=== PATIENT | male | born 1945 | race Caucasian/White ===

== ENCOUNTER 2017-07-19 09:45 | Day surgery (SDC) | payer BC, MEDICARE ==
[2017-07-17 09:42] VITALS: BMI 27.1
[~2017-07-19 09:45] MED LIST: LACTATED RINGERS 1,000 ML IV SCH
[2017-07-19 10:22] VITALS: TEMP 97.4
[2017-07-19] MEDS ORDERED: LIDOCAINE 1% 20 ML VIAL (10MG/ML) FOR IV START INTRADERMA ONE (10:30)
[2017-07-19] MEDS ORDERED: MIDAZOLAM 2 MG/2 ML VIAL IVP ONE (10:35)
[2017-07-19] MEDS ORDERED: LIDOCAINE 1% INJ 10MG/ML (20 ML MDV) ONE (10:56)
[2017-07-19] MEDS ORDERED: PROPOFOL 10 MG/ML 20 ML VIAL IV ONE (10:56)
--- NOTE | 2017-07-19 11:10 | P.PCN ---
Date of Procedure: 07/19/17 Procedure(s) Performed: BRIEF HISTORY: Patient is a 72-year-old, pleasant, white male, scheduled for an upper endoscopy as a part of [facility] history of GERD. He has been on Prilosec 20 mg twice daily. About a month ago he had severe heartburn and chest pain. He was started on Reglan 5 mg twice daily and his symptoms have improved. He scheduled for an upper endoscopy to rule out complicated reflux disease. PROCEDURE PERFORMED: Esophagogastroduodenoscopy with biopsy. PREOPERATIVE DIAGNOSIS: GERD IV sedation per anesthesia. PROCEDURE: After informed consent was obtained, the patient was brought into the endoscopy unit. IV sedation was administered by Anesthesia under continuous monitoring. Initially the Olympus GIF-140 video endoscope was inserted into the mouth. Esophagus intubated without any difficulty. It was gradually advanced into the stomach and duodenum and carefully examined. The bulb and the second part of the duodenum appeared normal. The scope at this time was withdrawn to the stomach, adequately insufflated with air, and upon careful examination, mucosa of the antrum had mild gastritis and biopsies were done from this area. The, body, cardia and the fundus appeared normal. The scope was then withdrawn into the esophagus. The GE junction was located at 39 cm from the incisors. The esophagus appeared normal. There were no erosions or ulcerations seen and the patient tolerated the procedure well. IMPRESSION: 1. Mild antral gastritis. 2. Normal-appearing esophagus with no evidence of esophagitis or Sanders's esophagus. RECOMMENDATIONS: The findings of this examination were discussed with the patient as well as his family. He was advised to follow with the biopsy results. He will continue with Prilosec 20 mg twice daily half hour before breakfast and dinnertime and follow antireflux measures.
[2017-07-19 11:27] VITALS: RESP 18
[2017-07-19 11:41] VITALS: BP 138/88; PULSE 58
== END 2017-07-19 11:55 | disposition home or self-care (01) ==
LOC: ORWHC2ENDO 09:45
PROVIDERS: ATTEND Internal Medicine Gastroenterology
DX: K29.50 Unspecified chronic gastritis without bleeding (principal); K22.9 Disease of esophagus, unspecified; K21.9 Gastro-esophageal reflux disease without esophagitis; E78.5 Hyperlipidemia, unspecified; Z79.82 Long term (current) use of aspirin; Z79.899 Other long term (current) drug therapy
CPT/HCPCS: 88305; 43239; J2250; J2001; J2704

== ENCOUNTER → 2018-06-27 | Outpatient (CLI) | payer MEDICARE ==
--- NOTE | 2018-06-27 08:34 | US ---
EXAMINATION TYPE: US abdomen complete DATE OF EXAM: 06/27/2018 COMPARISON: NONE CLINICAL HISTORY: R10.11 RUQ PAIN. RUQ pain for 3 weeks EXAM MEASUREMENTS: Liver Length: 15.0 cm Gallbladder Wall: 0.3 cm CBD: 0.4 cm Spleen: 12.2 cm Right Kidney: 11.2 x 4.5 x 4.5 cm Left Kidney: 10.9 x 4.8 x 4.9 cm Technical limitations due to large amount of overlying bowel content Pancreas: Obscured by bowel gas Liver: appears wnl Gallbladder: no evidence of stones Evidence for sonographic Gamboa's sign: no CBD: appears wnl as visualized Spleen: appears wnl Right Kidney: possible dense echogenic area mid = 0.8cm Left Kidney: no evidence of hydronephrosis Upper IVC: wnl Abd Aorta: visualized portions appear wnl The liver is homogenous. The intrahepatic portion of the IVC and proximal abdominal aorta are within normal limits. There is no evidence of cholelithiasis. Common bile duct is unremarkable. The visu alized portions of the pancreas are homogenous. The spleen is unremarkable. Kidneys are symmetric a nd free of hydronephrosis. No renal lesions are seen. IMPRESSION: 1. Suspect nonobstructing calculus right kidney.
== END | disposition home or self-care (01) ==
LOC: RADUSWWP 07:38
PROVIDERS: ATTEND Family Medicine
DX: R10.11 Right upper quadrant pain (principal)
CPT/HCPCS: 76700

== ENCOUNTER 2018-09-12 08:36 | Day surgery (SDC) | payer MEDICARE ==
[2018-09-11 08:27] VITALS: BMI 27.1
[~2018-09-12 08:36] MED LIST changes: +LIDOCAINE 1% 20 ML VIAL (10MG/ML) FOR IV START INTRADERMA PRN
[2018-09-12 08:49] VITALS: TEMP 97.4
[2018-09-12] MEDS ORDERED: LIDOCAINE 1% INJ 10MG/ML (20 ML MDV) ONE (09:21)
[2018-09-12] MEDS ORDERED: PROPOFOL 10 MG/ML 20 ML VIAL IV ONE (09:21)
--- NOTE | 2018-09-12 09:34 | P.PCN ---
Date of Procedure: 09/12/18 Procedure(s) Performed: BRIEF HISTORY: Patient is a 73-year-old pleasant white male, scheduled for an elective colonoscopy as a part of variation of prior history of colon polyps. PROCEDURE PERFORMED: Colonoscopy. PREOPERATIVE DIAGNOSIS: History of colon polyps. IV sedation per Anesthesia. PROCEDURE: After informed consent was obtained, the patient, was brought into the endoscopy unit. IV sedation was administered by Anesthesia under continuous monitoring. Digital rectal examination was normal. Initially the Olympus CF-160 flexible video colonoscope was then inserted in the rectum, gradually advanced into the cecum without any difficulty. Careful examination was performed as the scope was gradually being withdrawn. Ileocecal valve and the appendiceal orifice were visualized and appeared normal. Prep was excellent. Mucosa of the cecum, ascending colon, transverse colon, descending colon, sigmoid colon, and rectum appeared normal. Scattered left sided diverticulosis seen. Retroflexion was performed in the rectum and small internal hemorrhoids were seen. The patient tolerated the procedure well. IMPRESSION: Normal-appearing colon from rectum to cecum with no evidence of colitis or colorectal neoplasia Scattered sigmoid diverticulosis Small internal hemorrhoids . RECOMMENDATIONS: Findings of this examination were discussed with the patient as well as a family. She was advised to have a repeat screening colonoscopy in 5 years because of the prior history of colon polyps.
[2018-09-12 09:52] VITALS: BP 153/84; PULSE 66; RESP 18
== END 2018-09-12 10:23 | disposition home or self-care (01) ==
LOC: ORWHC2ENDO 08:36
PROVIDERS: ATTEND Internal Medicine Gastroenterology
DX: Z86.010 Personal history of colon polyps (principal); K57.30 Diverticulosis of large intestine without perforation or abscess without bleeding; K64.8 Other hemorrhoids; K21.9 Gastro-esophageal reflux disease without esophagitis; Z79.899 Other long term (current) drug therapy
CPT/HCPCS: 45378; J2001; J2704

== ENCOUNTER 2020-01-22 09:53 | Day surgery (SDC) | payer MEDICARE ==
[2020-01-22] MEDS ORDERED: ONDANSETRON 4 MG/2 ML VIAL ONE (10:53)
[2020-01-22] MEDS ORDERED: LIDOCAINE 1% (10MG/ML) FOR IV START INTRADERMA ONE (10:54)
[2020-01-22] MEDS ORDERED: LACTATED RINGERS 1,000 ML IV ONE (10:55)
[2020-01-22] MEDS ORDERED: ONDANSETRON 4 MG/2 ML VIAL IVP ONE (10:55)
[2020-01-22 10:57] VITALS: TEMP 97.6
[2020-01-22] MEDS ORDERED: PROPOFOL 10 MG/ML 20 ML VIAL IV ONE (11:28)
[2020-01-22] MEDS ORDERED: LIDOCAINE 1% INJ 10MG/ML (20 ML MDV) ONE (11:28)
--- NOTE | 2020-01-22 11:40 | P.PCN ---
Date of Procedure: 01/22/20 Procedure(s) Performed: BRIEF HISTORY: Patient is a 74-year-old, pleasant, white female scheduled for an upper endoscopy for evaluation of severe heartburn for the last 2 weeks' duration. He is presently on Prilosec and Carafate and Reglan with some help. He scheduled for an upper endoscopy to rule out compensated reflux disease. PROCEDURE PERFORMED: Esophagogastroduodenoscopy with biopsy. PREOPERATIVE DIAGNOSIS: Severe GERD of 2 weeks. IV sedation per anesthesia. PROCEDURE: After informed consent was obtained, the patient was brought into the endoscopy unit. IV sedation was administered by Anesthesia under continuous monitoring. Initially the Olympus GIF-140 video endoscope was inserted into the mouth. Esophagus intubated without any difficulty. It was gradually advanced into the stomach and duodenum and carefully examined. The bulb and the second part of the duodenum appeared normal. The scope at this time was withdrawn to the stomach, adequately insufflated with air, and upon careful examination, mucosa of the antrum had mild gastritis and biopsies were done from this area. The body, cardia and the fundus appeared normal. The scope was then withdrawn into the esophagus. The GE junction was located at 39 cm from the incisors. The esophagus appeared normal. There were no erosions or ulcerations seen, biopsies were done in the distal esophagus and the patient tolerated the procedure well. IMPRESSION: 1. Mild antral gastritis. 2. Normal appearing esophagus with no evidence of esophagitis. RECOMMENDATIONS: The findings of this examination were discussed with the patient well as his family. He was advised to follow with the biopsy results. In the meantime he will continue with omeprazole 40 mg before dinnertime, famotidine 20 mg at bedtime and Carafate as needed. He will be seen in office in 2 weeks.
[2020-01-22 11:49] VITALS: RESP 20
[2020-01-22 12:31] VITALS: BP 128/78; PULSE 58
== END 2020-01-22 12:29 | disposition home or self-care (01) ==
LOC: ORWHC2ENDO 09:53
PROVIDERS: ATTEND Internal Medicine Gastroenterology
DX: K29.50 Unspecified chronic gastritis without bleeding (principal); K21.00 Gastro-esophageal reflux disease with esophagitis, without bleeding; E78.5 Hyperlipidemia, unspecified; K21.9 Gastro-esophageal reflux disease without esophagitis; Z79.899 Other long term (current) drug therapy
CPT/HCPCS: 88305; 43239; J2405; J2001; J2704

== ENCOUNTER → 2020-03-25 | Outpatient (CLI) | payer MEDICARE ==
--- NOTE | 2020-03-26 09:16 | XR ---
EXAMINATION TYPE: XR KUB DATE OF EXAM: 03/25/2020 COMPARISON: None INDICATION: Hematuria TECHNIQUE: Single view abdomen supine view FINDINGS: There is a normal bowel gas pattern. Air is within the ascending colon and transverse colon. Psoas margins are normal. No organomegaly is present. There is a 0.4 cm transverse inferior pole left renal stone. There may be a 0.3 cm calcification over the mid lateral right kidney. This could be within fecal debris. Ar distal right ureteral stone is n ot excluded which would measure 0.3 cm. Correlate with patient's symptoms. IMPRESSION: 1. Bilateral renal stones with a possible distal right ureteral stone.
== END | disposition home or self-care (01) ==
LOC: RAD 17:10
PROVIDERS: ATTEND Urology
DX: N20.0 Calculus of kidney (principal)
CPT/HCPCS: 74018

== ENCOUNTER → 2020-12-01 | Outpatient (CLI) | payer MEDICARE ==
--- NOTE | 2020-12-01 12:50 | US ---
EXAMINATION TYPE: US venous doppler duplex LE RT DATE OF EXAM: 12/01/2020 12:40 PM COMPARISON: NONE CLINICAL HISTORY: I80.299 PHLEBITIS. Right medial thigh palpable painful area SIDE PERFORMED: Right TECHNIQUE: The lower extremity deep venous system is examined utilizing real time linear array sonog julien with graded compression, doppler sonography and color-flow sonography. VESSELS IMAGED: Common Femoral Vein Deep Femoral Vein Greater Saphenous Vein * Femoral Vein Popliteal Vein Small Saphenous Vein * Proximal Calf Veins (* superficial vessels) Right Leg: Appears negative for DVT and superficial thrombophlebitis IMPRESSION: 1. Right lower extremity ultrasound negative for deep venous thrombosis.
== END | disposition home or self-care (01) ==
LOC: RADUSWWP 12:02
PROVIDERS: ATTEND Family Medicine
DX: M79.651 Pain in right thigh (principal)

== ENCOUNTER → 2023-05-17 | Outpatient (CLI) | payer MEDICARE ==
--- NOTE | 2023-05-17 14:11 | US ---
EXAMINATION TYPE: DATE OF EXAM: 05/17/2023 COMPARISON: 2018 CLINICAL INDICATION: Male, 77 years old with history of N20.0 CALCULUS OF KIDNEY; Hx kidney stones; b ilateral flank pain EXAM MEASUREMENTS: Right Kidney: 10.7 x 5.0 x 5.1 cm Left Kidney: 10.6 x 5.4 x 4.1 cm Post Void Residual Volume: 15.4 mL Right Kidney: Echogenic focus with twinkle artifact noted measuring 0.7 cm; mild hydronephrosis; cyst ic area measuring 1.2 x 0.9 x 1.1 mild prominence of the renal collecting system. Left Kidney: No hydronephrosis or masses seen Bladder: Anechoic Bilateral Jets seen: Yes Normal Post Void Residual: Yes IMPRESSION: 1. Subcentimeter right renal calculus identified. 2. Mild prominence of the right renal collecting system
== END | disposition home or self-care (01) ==
LOC: RADUSWWP 13:31
PROVIDERS: ATTEND Internal Medicine
DX: N20.0 Calculus of kidney (principal)
CPT/HCPCS: 76770

== ENCOUNTER → 2023-06-14 | Outpatient (CLI) | payer MEDICARE ==
--- NOTE | 2023-06-14 12:15 | XR ---
EXAMINATION TYPE: XR KUB DATE OF EXAM: 06/14/2023 Comparison: 02/22/2021 Clinical History: 78-year-old male left renal stone and left-sided pain N20.0 KUB Findings: Nonobstructive bowel gas pattern. [id number] stool in the right-sided the abdomen. There is a 6 mm stone at the mid right ureter level. Possible 4 mm nonobstructive right renal stone. Suspected ti ny right-sided pelvic phlebolith. Impression: 6 mm stone in the expected mid right ureter. Possible 4 mm nonobstructive right renal calculus.
== END | disposition home or self-care (01) ==
LOC: RADXRMAIN 11:44
PROVIDERS: ATTEND Urology
DX: N20.2 Calculus of kidney with calculus of ureter (principal)
CPT/HCPCS: 74018

== ENCOUNTER → 2023-06-28 | Outpatient (CLI) | payer MEDICARE ==
--- NOTE | 2023-06-28 10:06 | CT ---
EXAMINATION TYPE: CT abdomen pelvis wo con CT DLP: 906 mGycm, Automated exposure control for dose reduction was used. DATE OF EXAM: 06/28/2023 8:39 AM COMPARISON: None CLINICAL INDICATION:Male, 78 years old with history of N20.1 CALCULUS OF URETER; TECHNIQUE: Axial CT abdomen pelvis wo con;Sagittal and coronal reformats were created on a separate workstation. Contrast used: mL of , (none if empty) Oral contrast used: (none if empty) FINDINGS: LOWER CHEST: Unremarkable ABDOMEN LIVER: Unremarkable GALLBLADDER AND BILE DUCTS: Unremarkable. PANCREAS: Fatty atrophy changes predominantly in the pancreatic head. SPLEEN: Unremarkable. ADRENAL GLANDS: Unremarkable. KIDNEYS AND URETERS: No evidence for obstructive uropathy. Nonobstructing right 4 mm contrast. Left 1 mm renal calculus. 5 mm thickness in the proximal right ureter. Series 3 image 56. PELVIS BLADDER: Unremarkable REPRODUCTIVE: Unremarkable. ABDOMEN & PELVIS STOMACH AND BOWEL: No evidence of bowel obstruction. Scattered colonic diverticula. The appendix is n ormal. PERITONEUM/RETROPERITONEUM: No evidence of pneumoperitoneum or free fluid. VASCULATURE: No evidence of aortic aneurysm. MUSCULOSKELETAL: No acute osseous abnormalities LYMPH NODES: No gross evidence for lymphadenopathy. SOFT TISSUE/ABDOMINAL WALL: Fat-containing umbilical hernia. IMPRESSION: 1. Right proximal ureter 5 mm calculus. No hydronephrosis. 2. Nonobstructing bilateral renal calculi. 3. Colonic diverticulosis. 4. Fat-containing umbilical hernia.
== END | disposition home or self-care (01) ==
LOC: RADCTMAIN 08:14
PROVIDERS: ATTEND Urology
DX: K57.30 Diverticulosis of large intestine without perforation or abscess without bleeding (principal); K42.9 Umbilical hernia without obstruction or gangrene; N20.2 Calculus of kidney with calculus of ureter
CPT/HCPCS: 74176

== ENCOUNTER → 2023-08-09 | Outpatient (CLI) | payer MEDICARE ==
[2023-08-09 10:45] LABS: Appearance,Urine Clear (Clear); Bilirubin,Urine Negative (Negative); Blood,Urine Negative (Negative); Color,Urine Yellow (Yellow); Ketones,Urine Negative (Negative); Nitrite,Urine Negative (Negative); Specific Gravity,Urine 1.011 (1.001-1.030)
[2023-08-09 18:10] LABS: Basophils # (A) 0.04 X 10*3/uL (0.00-0.10); Basophils % (A) 0.4 %; Eosinophils # (A) 0.11 X 10*3/uL (0.04-0.35); Eosinophils % (A) 1.2 %; HCT 46.1 % (39.6-50.0); HGB 15.4 g/dL (13.0-17.0); Lymphocytes # (A) 0.97 X 10*3/uL (0.90-5.00); Lymphocytes % (A) 10.9 %; MCH 30.7 pg (27.0-32.0); MCHC 33.4 g/dL (32.0-37.0); Mean Platelet Volume 11.6 FL (9.5-12.2); Monocytes # (A) 0.86 X 10*3/uL (0.20-1.00); Monocytes % (A) 9.6 %; NRBC Per 100 WBC 0 X 10*3/uL (0.00-0.01); Neutrophils # (A) 6.91 X 10*3/uL (1.80-7.70); Neutrophils % (A) 77.5 %; Platelet Count 175 X 10*3/uL (140-440); RBC 5.01 X 10*6/uL (4.40-5.60); RDW 13.3 % (11.5-14.5); WBC 8.93 X 10*3/uL (4.50-10.00)
[2023-08-09 18:37] LABS: ALT 43 U/L (10-49); AST 30 U/L (14-35); Albumin 4.8 g/dL (3.8-4.9); Albumin/Globulin Ratio 2.18 Ratio (1.60-3.17); Alkaline Phosphatase 45 U/L (41-126); BUN/Creat Ratio 14.27 Ratio (12.00-20.00); Blood Urea Nitrogen 15.7 mg/dL (9.0-27.0); Calcium 9.6 mg/dL (8.7-10.3); Chloride 104 mmol/L (96-109); Chol/HDL Ratio 3.01 Ratio; Globulin 2.2 g/dL (1.6-3.3); Glucose 126 mg/dL (70-110); LDL Cholesterol,Calculated 73.5 mg/dL (0.0-131.0); Sodium 142 mmol/L (135-145); Total Bilirubin 0.5 mg/dL (0.3-1.2)
== END | disposition home or self-care (01) ==
LOC: LABPAT 07:39
PROVIDERS: ATTEND Urology
DX: Z01.812 Encounter for preprocedural laboratory examination (principal); Z11.59 Encounter for screening for other viral diseases; N20.1 Calculus of ureter; E78.5 Hyperlipidemia, unspecified; N20.0 Calculus of kidney; R73.01 Impaired fasting glucose
CPT/HCPCS: 36415; 80053; 80061; 81003; 83036; 85025; 86803

== ENCOUNTER 2023-08-14 06:03 | Day surgery (SDC) | payer MEDICARE ==
--- NOTE | 2023-08-13 18:33 | P.GSHP ---
History of Present Illness H&P Date: 08/13/23 78 yo male with stones. Was sent by Dr Anderson with right sided flank pain. The ct scan showed a 5 mm mid right ureteral stone. I did a kub and the stone had moved to l4. He wanted something done to remove the stone. He has chosen eswl right and comes for this procedure. - Constitutional Constitutional: Denies chills, Denies fever - EENT Eyes: denies blurred vision, denies pain Ears, nose, mouth and throat: Denies headache, Denies sore throat - Cardiovascular Cardiovascular: Denies chest pain, Denies shortness of breath - Respiratory Respiratory: Denies cough, Denies 7 - Gastrointestinal Gastrointestinal: Denies abdominal pain, Denies diarrhea, Denies nausea, Denies vomiting - Genitourinary (Female) Genitourinary: Denies dysuria, Denies hematuria - Genitourinary (Male) Genitourinary: Denies dysuria, Denies hematuria - Musculoskeletal Musculoskeletal: Denies myalgias - Integumentary Integumentary: Denies pruritus, Denies rash - Neurological Neurological: Denies numbness, Denies weakness - Psychiatric Psychiatric: Denies anxiety, Denies depression - Endocrine Endocrine: Denies fatigue, Denies weight change Past Medical History Past Medical History: Cancer, GERD/Reflux, Hyperlipidemia, Osteoarthritis (OA) Additional Past Medical History / Comment(s): SKIN CANCER, HX COLON POLYP, PRE- DIABETES. HX. kidney stones History of Any Multi-Drug Resistant Organisms: None Reported Past Surgical History: Orthopedic Surgery Additional Past Surgical History / Comment(s): rama rotator cuff repair, arthroscopy rt knee, colonoscopy, lithotripsy x2 Past Anesthesia/Blood Transfusion Reactions: No Reported Reaction, Motion Sickness, Postoperative Nausea & Vomiting (PONV) Additional Past Anesthesia/Blood Transfusion Reaction / Comment(s): pt. states sometimes a little nauseous when coming out of anesthesia. Smoking Status: Never smoker - Past Family History Mother Family Medical History: No Reported History Sister(s) Family Medical History: No Reported History Medications and Allergies Home Medications Medication Instructions Recorded Confirmed Type Atorvastatin [Lipitor] 40 mg PO HS 07/17/17 08/10/23 History Cholecalciferol [Vitamin D3] 6,000 unit PO DAILY 07/17/17 08/10/23 History Cinnamon Bark [Cinnamon] 1,000 mg PO DAILY 07/17/17 08/10/23 History Ubidecarenone [Co Q-10] 100 mg PO DAILY 07/17/17 08/10/23 History Multivitamin/Iron/Folic Acid 1 each PO DAILY 09/11/18 08/10/23 History [Centrum Adults Tablet] Aspirin [Adult Low Dose Aspirin EC] 81 mg PO DAILY 08/10/23 08/10/23 History Celecoxib 100 mg PO DAILY PRN 08/10/23 08/10/23 History Omeprazole 40 mg PO DAILY 08/10/23 08/10/23 History Allergies Allergy/AdvReac Type Severity Reaction Status Date / Time No Known Allergies Allergy Verified 08/10/23 10:10 Surgical - Exam - General well developed, well nourished, no distress - Eyes normal ocular movement, no icteric - ENT no hearing loss, no congestion - Neck no masses, trachea midline - Respiratory normal respiratory effort, clear to auscultation - Abdomen Abdomen: soft, non tender, no guarding, no rigid, no rebound - Integumentary no rash, no abnormal pigmentation - Neurologic no disoriented, no combative - Psychiatric oriented to time, oriented to person, oriented to place, speech is normal, memory intact Results - Imaging Abdominal x-ray: report reviewed, image reviewed CT scan - abdomen: report reviewed, image reviewed CT scan - pelvis: report reviewed, image reviewed Assessment and Plan Assessment: Impression: right ureteral calculous. Plan: right eswl
[2023-08-14] MEDS ORDERED: HYDROmorphone 0.5 MG/0.5 ML SYRINGE IVP PRN (07:00)
[2023-08-14] MEDS ORDERED: MIDAZOLAM 2 MG/2 ML VIAL IV PRN (07:00)
--- NOTE | 2023-08-14 07:08 | XR ---
EXAMINATION TYPE: XR KUB DATE OF EXAM: 08/14/2023 COMPARISON: 07/17/2023 INDICATION: Renal and ureteral stones TECHNIQUE: Single view abdomen frontal projection FINDINGS: There is a normal bowel gas pattern. Psoas margins are normal. No organomegaly is present. Punctate calcifications may be within the mid right kidney. This appears to be present previously, me asuring 0.5 cm. There is a 0.9 cm calcification near the L4-5 level on the right. Mid right ureteral stone may be pre sent. Findings present previously. Better visualized currently. IMPRESSION: 1. Mid right ureteral stone near the pelvic inlet measuring 0.9 cm the right at the L4-5 level.
[2023-08-14] MEDS: LACTATED RINGERS 1,000 ML IV SCH (07:09)
[2023-08-14] MEDS: DEXAMETHASONE SOD PHOSPHATE 4 MG/ML 1 ML VIAL IVP STA (07:10)
[2023-08-14] MEDS: ONDANSETRON 4 MG/2 ML VIAL IVP STA (07:10)
[2023-08-14] MEDS: IV FLUID CONTINUATION 1,000 ML IV ONE (07:14)
[2023-08-14 07:22] VITALS: TEMP 97.5
[2023-08-14] MEDS ORDERED: LIDOCAINE 1% INJ 10MG/ML (20 ML MDV) ONE (07:35)
[2023-08-14] MEDS ORDERED: fentaNYL (PF) 50 MCG/ML 2 ML AMP ONE (07:35)
[2023-08-14] MEDS ORDERED: PROPOFOL 10 MG/ML 20 ML VIAL IV ONE (07:35)
[2023-08-14] MEDS ORDERED: MIDAZOLAM 2 MG/2 ML VIAL ONE (07:35)
--- NOTE | 2023-08-14 08:27 | P.OP ---
Date of Procedure: 08/14/23 Preoperative Diagnosis: RIGHT URETERAL Stone Postoperative Diagnosis: same Procedure(s) Performed: Right ESWL Implants: none Anesthesia: MAC Surgeon: Caesar Tsai Pathology: none sent Condition: stable Disposition: PACU Indications for Procedure: 78 yo male with stones. Was sent by Dr Anderson with right sided flank pain. The ct scan showed a 5 mm mid right ureteral stone. I did a kub and the stone had moved to l4. He wanted something done to remove the stone. He has chosen eswl right and comes for this procedure. Operative Findings: right sided mid Ureteral stone Description of Procedure: he patient was taken to the operating room and placed on the Dornier Compact Delta II lithotripter in the supine position. The calculus was seen on biplanar fluoroscopy. Once the patient was properly positioned and sedated, lithotripsy was performed. The energy level was gradually increased per protocol, to an energy level of 6 [After 200 shocks were administered, a 1 minute pause was instituted per protocol. ]A total of 3000 shocks were given at a rate of 100 shocks per minute. Fluoroscopy was utilized at a minimum to ensure proper positioning and determine the treatment status. The appearance of the calculus did change , suggesting fragmentation had occurred. The patient tolerated the procedure well was taken to the recovery room in stable condition. Instructions were given to strain the urine, and the patient will follow-up within one week.
[2023-08-14 08:48] VITALS: BP 127/71; PULSE 70; RESP 16
== END 2023-08-14 09:21 | disposition home or self-care (01) ==
LOC: ORWHC2ENDO 06:03
PROVIDERS: ATTEND Urology
DX: N20.1 Calculus of ureter (principal); E78.5 Hyperlipidemia, unspecified; K21.9 Gastro-esophageal reflux disease without esophagitis; M19.90 Unspecified osteoarthritis, unspecified site; Z85.828 Personal history of other malignant neoplasm of skin; Z79.82 Long term (current) use of aspirin; Z79.1 Long term (current) use of non-steroidal anti-inflammatories (NSAID); Z79.899 Other long term (current) drug therapy; Z86.010 Personal history of colon polyps
CPT/HCPCS: 74018; 50590; J2250; J1100; J2405; J2001; J3010; J2704

== ENCOUNTER → 2023-08-21 | Outpatient (CLI) | payer MEDICARE ==
--- NOTE | 2023-08-21 09:19 | XR ---
EXAMINATION TYPE: XR KUB DATE OF EXAM: 08/21/2023 HISTORY: Pain Comparison: 08/14/2023 Single KUB is submitted for interpretation. Findings: Right renal calculi: Limited by overlying bowel content. Right ureteral calculi: Right ureteral calculus at the L4-5 level is unchanged and measures 5 mm in t ransverse dimension by 7.2 mm in caudal dimension. Left renal calculi: None Visualized. Left ureteral calculi: None Visualized. Pelvic calcifications: Pelvic phleboliths noted. Bowel gas pattern is unremarkable. No free air. No mass effects. IMPRESSION: 1. Right ureteral calculus is unchanged in position.
== END | disposition home or self-care (01) ==
LOC: RADXRMAIN 07:45
PROVIDERS: ATTEND Urology
DX: N20.2 Calculus of kidney with calculus of ureter (principal)
CPT/HCPCS: 74018

== ENCOUNTER → 2023-09-19 | Outpatient (CLI) | payer MEDICARE ==
--- NOTE | 2023-09-19 11:50 | XR ---
EXAMINATION TYPE: XR KUB DATE OF EXAM: 09/19/2023 COMPARISON: Multiple KUB with most recent 08/21/2023, CT scan pelvis 06/28/2023 HISTORY: Calculus TECHNIQUE: Single supine KUB image of the abdomen is obtained FINDINGS: Small bowel demonstrates no evidence for dilatation or air fluid levels. Gas and fecal material is seen in non-distended colon. No convincing evidence for pneumoperitoneum. 4 mm right renal calculus redemonstrated. No significant change in position of 5 mm right ureteral ca lculus at the level of L4-L5. The lung bases are clear. The osseous structures are intact. IMPRESSION: Right ureteral calculus is in unchanged position from prior exam 08/21/2023.
== END | disposition home or self-care (01) ==
LOC: RADXRMAIN 11:27
PROVIDERS: ATTEND Urology
DX: N20.1 Calculus of ureter (principal)
CPT/HCPCS: 74018

== ENCOUNTER → 2023-10-31 | Outpatient (CLI) | payer MEDICARE ==
--- NOTE | 2023-10-31 13:00 | XR ---
EXAMINATION TYPE: XR KUB DATE OF EXAM: 10/31/2023 Comparison: 09/19/2023 Clinical History: 78-year-old male N20.1 CALCULUS OF URETER Findings: 7 mm calcification right paramedian mid abdomen. Relatively slightly similar to recent prior. A 5 mm right mid abdominal calcification is unchanged as well. Moderate stool burden. Impression: 6 mm stone at the suspected mid right ureter is unchanged. Also unchanged 5 mm nonobstructive right r enal stone.
--- NOTE | 2023-11-14 18:33 | P.GSHP ---
History of Present Illness H&P Date: 11/14/23 78 yo male with a history of stones. In May of 2023 he underwent eswl right. He lodged a fragment in the mid ureter that initially caused pain. The patient is asx and has been given several weeks to try to pass but this has failed. He had a kub revently that shows it at l4 level on the right. He has been given treatment options and now comes for right ureteroscopy with laser lithotripsy. - Constitutional Constitutional: Denies chills, Denies fever - EENT Eyes: denies blurred vision, denies pain Ears, nose, mouth and throat: Denies headache, Denies sore throat - Cardiovascular Cardiovascular: Denies chest pain, Denies shortness of breath - Respiratory Respiratory: Denies cough, Denies 7 - Gastrointestinal Gastrointestinal: Denies abdominal pain, Denies diarrhea, Denies nausea, Denies vomiting - Genitourinary (Female) Genitourinary: Denies dysuria, Denies hematuria - Genitourinary (Male) Genitourinary: Denies dysuria, Denies hematuria - Musculoskeletal Musculoskeletal: Denies myalgias - Integumentary Integumentary: Denies pruritus, Denies rash - Neurological Neurological: Denies numbness, Denies weakness - Psychiatric Psychiatric: Denies anxiety, Denies depression - Endocrine Endocrine: Denies fatigue, Denies weight change Past Medical History Past Medical History: Cancer, GERD/Reflux, Hyperlipidemia Additional Past Medical History / Comment(s): SKIN CANCER, HX COLON POLYP, [id number] DIET. History of Any Multi-Drug Resistant Organisms: None Reported Past Surgical History: Orthopedic Surgery Additional Past Surgical History / Comment(s): rama rotator cuff repair, arthroscopy knee Past Anesthesia/Blood Transfusion Reactions: No Reported Reaction, Motion Sickness Smoking Status: Never smoker - Past Family History Mother Family Medical History: No Reported History Sister(s) Family Medical History: No Reported History Medications and Allergies Home Medications Medication Instructions Recorded Confirmed Type Atorvastatin [Lipitor] 40 mg PO HS 07/17/17 11/09/23 History Multivitamin/Iron/Folic Acid 1 each PO DAILY 09/11/18 11/09/23 History [Centrum Adults Tablet] Aspirin [Adult Low Dose Aspirin EC] 81 mg PO DAILY 08/10/23 11/09/23 History Allergies Allergy/AdvReac Type Severity Reaction Status Date / Time No Known Allergies Allergy Verified 11/09/23 13:40 Surgical - Exam - General well developed, well nourished, no distress - Eyes normal ocular movement, no icteric - ENT no hearing loss, no congestion - Neck no masses, trachea midline - Respiratory normal respiratory effort, clear to auscultation - Abdomen Abdomen: soft, non tender, no guarding, no rigid, no rebound - Integumentary no rash, no abnormal pigmentation - Neurologic no disoriented, no combative - Psychiatric oriented to time, oriented to person, oriented to place, speech is normal, memory intact Results - Imaging Abdominal x-ray: report reviewed, image reviewed Assessment and Plan Assessment: Impression: right ureteral stone, mid ureter at l4 Plan: cysto right retrograde with right ureterocopy with laser lithotripsy
== END | disposition home or self-care (01) ==
LOC: RADXRMAIN 12:31
PROVIDERS: ATTEND Urology
DX: N20.2 Calculus of kidney with calculus of ureter (principal)
CPT/HCPCS: 74018

== ENCOUNTER → 2023-11-10 | Outpatient (CLI) | payer MEDICARE ==
[2023-11-10 10:19] LABS: Basophils # (A) 0.06 X 10*3/uL (0.00-0.10); Basophils % (A) 0.8 %; Eosinophils # (A) 0.18 X 10*3/uL (0.04-0.35); Eosinophils % (A) 2.5 %; HCT 44.8 % (39.6-50.0); HGB 15.3 g/dL (13.0-17.0); Lymphocytes # (A) 1.25 X 10*3/uL (0.90-5.00); Lymphocytes % (A) 17.1 %; MCH 31.3 pg (27.0-32.0); MCHC 34.2 g/dL (32.0-37.0); MCV 91.6 FL (80.0-97.0); Mean Platelet Volume 11.4 FL (9.5-12.2); Monocytes # (A) 0.79 X 10*3/uL (0.20-1.00); Monocytes % (A) 10.8 %; NRBC Per 100 WBC 0 X 10*3/uL (0.00-0.01); Neutrophils # (A) 4.97 X 10*3/uL (1.80-7.70); Platelet Count 187 X 10*3/uL (140-440); RBC 4.89 X 10*6/uL (4.40-5.60); RDW 13.6 % (11.5-14.5); WBC 7.31 X 10*3/uL (4.50-10.00)
[2023-11-10 10:27] LABS: Blood Urea Nitrogen 14.2 mg/dL (9.0-27.0); Calcium 9.2 mg/dL (8.7-10.3); Carbon Dioxide 22.9 mmol/L (21.6-31.8); Chloride 107 mmol/L (96-109); Glucose 174 mg/dL (70-110); Potassium 4.2 mmol/L (3.5-5.5); Sodium 141 mmol/L (135-145)
[2023-11-10 12:47] LABS: Appearance,Urine Clear (Clear); Bilirubin,Urine Negative (Negative); Blood,Urine Negative (Negative); Color,Urine Yellow (Yellow); Ketones,Urine Negative (Negative); Nitrite,Urine Negative (Negative); PH, Urine 5.5; Specific Gravity,Urine 1.017 (1.001-1.030); Urobilinogen,Urine 0.2 E.U./DL
== END | disposition home or self-care (01) ==
LOC: LABWHC1 07:49
PROVIDERS: ATTEND Urology
DX: Z01.818 Encounter for other preprocedural examination
CPT/HCPCS: 36415; 80048; 81003; 85025; 87086

== ENCOUNTER 2023-11-15 09:20 | Day surgery (SDC) | payer MEDICARE ==
[2023-11-09 13:48] VITALS: BMI 25.7
[~2023-11-15 09:20] MED LIST changes: +HYDROmorphone 0.5 MG/0.5 ML SYRINGE IVP PRN; -LIDOCAINE 1% 20 ML VIAL (10MG/ML) FOR IV START INTRADERMA PRN; +fentaNYL (PF) 50 MCG/ML 2 ML AMP IV PRN
--- NOTE | 2023-11-15 09:39 | XR ---
EXAMINATION TYPE: XR KUB DATE OF EXAM: 11/15/2023 COMPARISON: KUB 10/31/2023, CT scan pelvis 06/28/2023 HISTORY: Right ureteral stone TECHNIQUE: Single supine KUB image of the abdomen is obtained FINDINGS: Small bowel demonstrates no evidence for dilatation or air fluid levels. Gas and fecal material is seen in non-distended colon. Unchanged position of 7 mm calculus at the suspected right mid ureter at the L4-L5 level. Unchanged 5 mm right renal stone. The lung bases are clear. The osseous structures are intact. IMPRESSION: 1. Unchanged 7 mm calculus at the suspected mid right ureter. 2. Unchanged 5 mm right renal calculus. [facility], , 11/15/2023 9:37 AM
[2023-11-15] MEDS: IV FLUID CONTINUATION 1,000 ML IV ONE ×2 (10:15→13:40)
[2023-11-15 10:45] LABS: Glucose,Whole Blood 109 mg/dL (70-110)
[2023-11-15] MEDS: DEXAMETHASONE SOD PHOSPHATE 4 MG/ML 1 ML VIAL IV ONE (10:51)
[2023-11-15] MEDS: ONDANSETRON 4 MG/2 ML VIAL IVP ONE (10:51)
[2023-11-15] MEDS ORDERED: PROPOFOL 10 MG/ML 20 ML VIAL IV ONE (11:59)
[2023-11-15] MEDS ORDERED: LIDOCAINE 1% INJ 10MG/ML (20 ML MDV) ONE (11:59)
[2023-11-15] MEDS ORDERED: fentaNYL (PF) 50 MCG/ML 2 ML AMP ONE (11:59)
[2023-11-15] MEDS ORDERED: SUCCINYLCHOLINE CHLORIDE 200 MG/10 ML VIAL IV ONE (11:59)
[2023-11-15] MEDS ORDERED: MIDAZOLAM 2 MG/2 ML VIAL ONE (11:59)
--- NOTE | 2023-11-15 12:43 | P.OP ---
Date of Procedure: 11/15/23 Preoperative Diagnosis: right ureteral calculus Postoperative Diagnosis: same Procedure(s) Performed: distal right ureteroscopy with laser lithotripsy Anesthesia: SUBHA Surgeon: Jostin Kinney Estimated Blood Loss (ml): 0 Pathology: none sent Condition: stable Disposition: PACU Indications for Procedure: patient is 78. He's been trying to pass a 7 mm ureteral stone for several weeks. He come for ureteroscopy and laser lithotripsy Description of Procedure: about operating suite given general anesthesia. Placed lithotomy position with sterile prep and drape. The stone was seen on fluoroscopy in the right ureter above the iliac vessels. Cystoscopy Foroblique lens and 21-Portuguese sheath identifies a normal urethra. The prostates minimally obstructing. The ureteral orifices normal bladder mucosa is unremarkable. An 035 wires passed up the ureter by the impacted stone into the kidney. Over the wires and passed a 12-04-Dntsti reentry sheath. The inner sheath is removed. I passed flexible ureteroscope up to the stone. With the 275 laser probe the stone was broken into tiny pieces a largest of which are basketed. I passed the ureteroscope up into the kidney and see no remaining fragments into pullout ureteroscopy. There are no remaining fragments. The scope and stent removed. The bladder is drained the patient is awake and returned recovery in good condition. Blood loss is minimal. Upon recovery. His condition is good.
--- NOTE | 2023-11-15 12:59 | FL ---
EXAMINATION TYPE: FL guidance operating room DATE OF EXAM: 11/15/2023 Comparison: None Clinical History: 78-year-old male RIGHT URETERAL STONE Findings: RIGHT SIDE CYSTO. FL TIME 29.7 SECONDS. DAP [id number]. 1 image sent into PACS. Dr Kinney. [facility], , 11/15/2023 12:57 PM
[2023-11-15 13:08] VITALS: TEMP 97.2
[2023-11-15 13:26] VITALS: PULSE 58
[2023-11-15 13:43] VITALS: RESP 16
[2023-11-15 13:56] VITALS: BP 154/84
--- NOTE | 2023-12-04 13:28 | P.GSHP ---
History of Present Illness H&P Date: 11/14/23 78 yo male with a history of stones. In May of 2023 he underwent eswl right. He lodged a fragment in the mid ureter that initially caused pain. The patient is asx and has been given several weeks to try to pass but this has failed. He had a kub revently that shows it at l4 level on the right. He has been given treatment options and now comes for right ureteroscopy with laser lithotripsy. - Constitutional Constitutional: Denies chills, Denies fever - EENT Eyes: denies blurred vision, denies pain Ears, nose, mouth and throat: Denies headache, Denies sore throat - Cardiovascular Cardiovascular: Denies chest pain, Denies shortness of breath - Respiratory Respiratory: Denies cough, Denies 7 - Gastrointestinal Gastrointestinal: Denies abdominal pain, Denies diarrhea, Denies nausea, Denies vomiting - Genitourinary (Female) Genitourinary: Denies dysuria, Denies hematuria - Genitourinary (Male) Genitourinary: Denies dysuria, Denies hematuria - Musculoskeletal Musculoskeletal: Denies myalgias - Integumentary Integumentary: Denies pruritus, Denies rash - Neurological Neurological: Denies numbness, Denies weakness - Psychiatric Psychiatric: Denies anxiety, Denies depression - Endocrine Endocrine: Denies fatigue, Denies weight change Past Medical History Past Medical History: Cancer, GERD/Reflux, Hyperlipidemia Additional Past Medical History / Comment(s): SKIN CANCER, HX COLON POLYP, [id number] DIET. History of Any Multi-Drug Resistant Organisms: None Reported Past Surgical History: Orthopedic Surgery Additional Past Surgical History / Comment(s): rama rotator cuff repair, arthroscopy knee Past Anesthesia/Blood Transfusion Reactions: No Reported Reaction, Motion Sickness Smoking Status: Never smoker - Past Family History Mother Family Medical History: No Reported History Sister(s) Family Medical History: No Reported History Medications and Allergies Home Medications Medication Instructions Recorded Confirmed Type Atorvastatin [Lipitor] 40 mg PO HS 07/17/17 11/15/23 History Multivitamin/Iron/Folic Acid 1 each PO DAILY 09/11/18 11/15/23 History [Centrum Adults Tablet] Aspirin [Adult Low Dose Aspirin EC] 81 mg PO DAILY 08/10/23 11/15/23 History Omeprazole 20 mg PO HS 11/15/23 11/15/23 History Allergies Allergy/AdvReac Type Severity Reaction Status Date / Time No Known Allergies Allergy Verified 11/15/23 10:10 Surgical - Exam - General well developed, well nourished, no distress - Eyes normal ocular movement, no icteric - ENT no hearing loss, no congestion - Neck no masses, trachea midline - Respiratory normal respiratory effort, clear to auscultation - Abdomen Abdomen: soft, non tender, no guarding, no rigid, no rebound - Integumentary no rash, no abnormal pigmentation - Neurologic no disoriented, no combative - Psychiatric oriented to time, oriented to person, oriented to place, speech is normal, memory intact Results - Imaging Abdominal x-ray: report reviewed, image reviewed Assessment and Plan Assessment: Impression: right ureteral stone, mid ureter at l4 Plan: cysto right retrograde with right ureterocopy with laser lithotripsy
== END 2023-11-15 14:10 | disposition home or self-care (01) ==
LOC: OR 09:20
PROVIDERS: ATTEND Urology
DX: N20.1 Calculus of ureter (principal); E78.5 Hyperlipidemia, unspecified; K21.9 Gastro-esophageal reflux disease without esophagitis; Z79.899 Other long term (current) drug therapy; Z85.828 Personal history of other malignant neoplasm of skin; Z79.82 Long term (current) use of aspirin
CPT/HCPCS: 82365; 74018; 52353; C1769; J2250; J0330; J1100; J2405; J0690; J2001; J3010; J2704

== ENCOUNTER → 2024-02-07 | Outpatient (CLI) | payer MEDICARE ==
[2024-02-07 16:09] LABS: Basophils # (A) 0.06 X 10*3/uL (0.00-0.10); Basophils % (A) 0.9 %; Eosinophils # (A) 0.13 X 10*3/uL (0.04-0.35); HCT 46.8 % (39.6-50.0); HGB 15.9 g/dL (13.0-17.0); Lymphocytes # (A) 1.26 X 10*3/uL (0.90-5.00); MCH 30.9 pg (27.0-32.0); MCV 90.9 FL (80.0-97.0); Mean Platelet Volume 11.7 FL (9.5-12.2); Monocytes # (A) 0.84 X 10*3/uL (0.20-1.00); Monocytes % (A) 12.7 %; NRBC Per 100 WBC 0 X 10*3/uL (0.00-0.01); Neutrophils # (A) 4.29 X 10*3/uL (1.80-7.70); Neutrophils % (A) 64.8 %; Platelet Count 200 X 10*3/uL (140-440); RBC 5.15 X 10*6/uL (4.40-5.60); RDW 13.1 % (11.5-14.5); WBC 6.62 X 10*3/uL (4.50-10.00)
[2024-02-07 16:19] LABS: ALT 35 U/L (10-49); AST 29 U/L (14-35); Albumin 4.6 g/dL (3.8-4.9); Albumin/Globulin Ratio 2.19 Ratio (1.60-3.17); Alkaline Phosphatase 42 U/L (41-126); Blood Urea Nitrogen 19.8 mg/dL (9.0-27.0); Calcium 9.3 mg/dL (8.7-10.3); Carbon Dioxide 24.1 mmol/L (21.6-31.8); Chloride 105 mmol/L (96-109); Chol/HDL Ratio 2.73 Ratio; Globulin 2.1 g/dL (1.6-3.3); Glucose 101 mg/dL (70-110); LDL Cholesterol,Calculated 67.7 mg/dL (0.0-131.0); Potassium 4.4 mmol/L (3.5-5.5); Prostate Specific Antigen 0.99 ng/mL (0.000-6.500); Sodium 140 mmol/L (135-145); Total Bilirubin 0.7 mg/dL (0.3-1.2); Total Protein 6.7 g/dL (6.2-8.2); VLDL Calculation 14.56 mg/dL (5.00-40.00)
== END | disposition home or self-care (01) ==
LOC: LABWHC1 11:05
PROVIDERS: ATTEND Internal Medicine
DX: Z12.5 Encounter for screening for malignant neoplasm of prostate (principal); E78.5 Hyperlipidemia, unspecified; R73.01 Impaired fasting glucose
CPT/HCPCS: 36415; 80053; 80061; 83036; 84153; 85025

== ENCOUNTER → 2024-09-13 | Outpatient (CLI) | payer MEDICARE ==
[2024-09-13 10:23] LABS: Basophils # (A) 0.04 X 10*3/uL (0.00-0.10); Basophils % (A) 0.6 %; Eosinophils # (A) 0.13 X 10*3/uL (0.04-0.35); Eosinophils % (A) 1.8 %; HCT 45.0 % (39.6-50.0); HGB 15.1 g/dL (13.0-17.0); Immature Grans, Automated 0.60 %; Lymphocytes # (A) 1.31 X 10*3/uL (0.90-5.00); Lymphocytes % (A) 18.3 %; MCH 31.4 pg (27.0-32.0); MCHC 33.6 g/dL (32.0-37.0); MCV 93.6 FL (80.0-97.0); Monocytes # (A) 0.81 X 10*3/uL (0.20-1.00); Monocytes % (A) 11.3 %; NRBC Per 100 WBC 0 X 10*3/uL (0.00-0.01); Neutrophils # (A) 4.83 X 10*3/uL (1.80-7.70); Neutrophils % (A) 67.4 %; Platelet Count 172 X 10*3/uL (140-440); RBC 4.81 X 10*6/uL (4.40-5.60); RDW 13.7 % (11.5-14.5); WBC 7.16 X 10*3/uL (4.50-10.00)
[2024-09-13 10:33] LABS: ALT 37 U/L (10-49); AST 29 U/L (14-35); Albumin 4.4 g/dL (3.8-4.9); Albumin/Globulin Ratio 2.20 Ratio (1.60-3.17); Alkaline Phosphatase 41 U/L (41-126); Anion Gap 11.50 mmol/L (4.00-12.00); BUN/Creat Ratio 15.50 Ratio (12.00-20.00); Blood Urea Nitrogen 15.5 mg/dL (9.0-27.0); Calcium 8.9 mg/dL (8.7-10.3); Carbon Dioxide 24.5 mmol/L (21.6-31.8); Chloride 105 mmol/L (96-109); Cholesterol 123.00 mg/dL (0.00-200.00); Globulin 2.0 g/dL (1.6-3.3); Glucose 115 mg/dL (70-110); HDL Cholesterol 49.20 mg/dL (40.00-60.00); LDL Cholesterol,Calculated 62.0 mg/dL (0.0-131.0); Potassium 4.1 mmol/L (3.5-5.5); Sodium 141 mmol/L (135-145); Total Protein 6.4 g/dL (6.2-8.2); Triglycerides 58.90 mg/dL (0.00-149.00); VLDL Calculation 11.78 mg/dL (5.00-40.00)
== END | disposition home or self-care (01) ==
LOC: LABWHC1 07:18
PROVIDERS: ATTEND Internal Medicine
DX: E78.5 Hyperlipidemia, unspecified (principal); R73.09 Other abnormal glucose
CPT/HCPCS: 36415; 80053; 80061; 83036; 85025